=== PATIENT | male | born 1940 | race Caucasian/White ===

== ENCOUNTER 2017-03-28 11:34 | Emergency (ER) | payer OTHER ==
[~2017-03-28] VITALS: Ht 180.3 cm; Wt 116.3 kg
[~2017-03-28 11:34] MED LIST: ASPIR 8181 M1 PO; ATORVASTATIN CA40 MG PO; CARVEDILOL25 MG PO; LISINOPRIL-HCT1 EAC3 PO; METAMUCIL PACKE1 PKT PO; NOVOLOG MI100 UNIT/4 SC; PLAVIX75 MG PO
[2017-03-28 13:30] LABS: EOSINOPHIL (%) 0.8 % (0-5); EOSINOPHIL COUNT 0.1 K/uL (0-0.3); HEMATOCRIT 51.7 % (38.0-50.0); IMMATURE GRANULOCYTE (%) 0.4 % (0.0-0.7); INSTRUMENT ABS NEUTROPHIL CT 6.9 K/uL; LYMPHOCYTE COUNT 0.9 K/uL (1.0-2.8); MCH 29.7 PG (29.0-34.0); MCHC 35.2 G/DL (30.0-36.0); MCV 84.5 FL (86-99); MEAN PLAT.VOLUME 10.5 uM^3 (9.0-12.4); MONOCYTE (%) 7.2 % (3-12); MONOCYTE COUNT 0.6 K/uL (0-0.8); NEUTROPHIL (%) 81.2 % (45-76); NEUTROPHIL COUNT 6.9 K/uL (1.8-6.4); PLATELET COUNT 133 K/uL (156-360); RBC DIS.WIDTH-CV 12.5 % (11.8-14.6); RBC DIS.WIDTH-SD 38.2 % (39-53); RED BLOOD COUNT 6.12 M/uL (4.00-5.50); WHITE BLOOD COUNT 8.5 K/uL (4.1-10.2)
[2017-03-28 13:47] LABS: CHLORIDE 104 mEq/L (99-109); POTASSIUM 4.2 mEq/L (3.7-5.4); SODIUM 138 mEq/L (136-147)
[2017-03-28 13:49] LABS: GLUCOSE 154 mg/dL (70-99)
[2017-03-28 13:50] LABS: ANION GAP 11 MEQ/L (2-14)
[2017-03-28 13:53] LABS: GFR ESTIMATE (CALCULATED) > 59 mL/min/; UREA NITROGEN (BUN) 19 mg/dL (9-23)
[2017-03-28 15:44] LABS: APPEARANCE CLOUDY-YELLOW; RED CELL COUNT 2000 /MM^3 (0-1); WHITE CELL COUNT 6280 /MM^3 (0-200.0)
[2017-03-28 15:46] LABS: MONONUCLEAR WBC'S 4 %; POLYNUCLEAR WBC'S 96 % (0-25); SYNOVIAL FLUID EOSINOPHILS 0 % (0-25)
[2017-03-28 16:34] LABS: SPECIFIC GRAVITY 1.029
[2017-03-28 16:54] VITALS: BP 152/95
== END 2017-03-28 16:55 | disposition home or self-care (01) ==
LOC: EME 11:34
PROVIDERS: Emergency Medicine; Nurse Practitioner Family
PROC: 0S9C3ZZ Drainage of Right Knee Joint, Percutaneous Approach (ICD-10-PCS; principal; 2017-03-28)
DX: M25.461 Effusion, right knee (principal); M10.9 Gout, unspecified; E78.5 Hyperlipidemia, unspecified; I10 Essential (primary) hypertension; E11.9 Type 2 diabetes mellitus without complications; I25.2 Old myocardial infarction; Z79.82 Long term (current) use of aspirin; Z87.891 Personal history of nicotine dependence
CPT/HCPCS: 73564; 80048; 84315; 85025; 87040; 89051; 89060; 99281; 99284

== ENCOUNTER 2018-04-07 05:25 | Inpatient (IN) | payer OTHER ==
[~2018-04-07] VITALS: Ht 177.8 cm; Wt 114.2 kg
[2018-04-07 06:25] LABS: MCH 30.8 PG (29.0-34.0); MCV 85.6 FL (86-99); PLATELET COUNT 130 K/uL (156-360); RBC DIS.WIDTH-CV 12.7 % (11.8-14.6); RED BLOOD COUNT 5.84 M/uL (4.00-5.50); WHITE BLOOD COUNT 6.1 K/uL (4.1-10.2)
[2018-04-07 06:36] LABS: CHLORIDE 103 mEq/L (99-109); POTASSIUM 4.1 mEq/L (3.7-5.4); SODIUM 137 mEq/L (136-147)
[2018-04-07 06:38] LABS: GLUCOSE 231 mg/dL (70-99)
[2018-04-07 06:42] LABS: GFR ESTIMATE (CALCULATED) > 59 mL/min/ (58.99-99999); UREA NITROGEN (BUN) 23 mg/dL (9-23)
[2018-04-07 06:44] LABS: LIPASE 38 U/L (1.0-51.0)
[2018-04-07 06:46] LABS: TROP-I INTERPRETATION NEGATIVE; TROPONIN-I 0.05 ng/mL (0.0-0.30)
[2018-04-07] MEDS ORDERED: LISINOPRIL40 MG PO (07:18)
[2018-04-07] MEDS ORDERED: VITAMIN D32000 UNI1 PO (07:19)
[2018-04-07 08:21] LABS: INTER. NORMALIZED RATIO 1.1
[2018-04-07 08:24] LABS: PTT 28.8 SEC (25-37)
[2018-04-07 08:27] LABS: TROP-I INTERPRETATION NEGATIVE; TROPONIN-I 0.16 ng/mL (0.0-0.30)
[2018-04-07 12:51] VITALS: BP 140/96
[2018-04-07 13:13] VITALS: BP 144/66
[2018-04-07 16:16] LABS: TROPONIN-I 6.42 ng/mL (0.0-0.30)
[2018-04-07 16:17] LABS: TROP-I INTERPRETATION POSITIVE
[2018-04-07 17:00] VITALS: BP 120/68
[2018-04-07 20:30] VITALS: BP 170/100
[2018-04-07 20:54] LABS: TROP-I INTERPRETATION POSITIVE; TROPONIN-I 11.57 ng/mL (0.0-0.30)
[2018-04-08 00:01] VITALS: BP 127/79
[2018-04-08 03:02] LABS: INTER. NORMALIZED RATIO 1.1
[2018-04-08 03:04] LABS: PTT 74.2 SEC (25-37)
[2018-04-08 04:48] VITALS: BP 125/63
[2018-04-08 06:53] LABS: BASOPHIL (%) 0.5 % (0-1); EOSINOPHIL (%) 1.7 % (0-5); EOSINOPHIL COUNT 0.1 K/uL (0-0.3); HEMATOCRIT 47.3 % (38.0-50.0); HEMOGLOBIN 16.3 G/DL (12.5-16.6); IMMATURE GRANULOCYTE (%) 0.3 % (0.0-0.7); LYMPHOCYTE (%) 21.9 % (15-42); LYMPHOCYTE COUNT 1.4 K/uL (1.0-2.8); MCH 29.6 PG (29.0-34.0); MCHC 34.5 G/DL (30.0-36.0); MONOCYTE (%) 8.1 % (3-12); MONOCYTE COUNT 0.5 K/uL (0-0.8); NEUTROPHIL (%) 67.5 % (45-76); NEUTROPHIL COUNT 4.3 K/uL (1.8-6.4); PLATELET COUNT 113 K/uL (156-360); RBC DIS.WIDTH-CV 12.8 % (11.8-14.6); RBC DIS.WIDTH-SD 39.9 % (39-53); WHITE BLOOD COUNT 6.3 K/uL (4.1-10.2)
[2018-04-08 07:10] VITALS: BP 132/80
[2018-04-08 07:19] LABS: ALBUMIN 3.4 G/DL (3.2-4.8); ALKALINE PHOSPHATASE 35 IU/L (3-129); ALT (GPT) 28 IU/L (3-49); AST (GOT) 52 IU/L (2-34); CHLORIDE 106 MEQ/L (99-109); GFR ESTIMATE (CALCULATED) > 59 mL/min/ (58.99-99999); GLUCOSE 167 mg/dL (70-99); HDL CHOLESTEROL 24 MG/DL (Desirable>=40); LDL CHOLESTEROL 93 mg/dL (Desirable<100); NON-HDL CHOLESTEROL 161 mg/dL (Desirable<160); POTASSIUM 4.1 MEQ/L (3.7-5.4); SODIUM 138 MEQ/L (136-147); TOTAL BILIRUBIN 0.8 MG/DL (0.0-1.0); TOTAL CHOLESTEROL 185 mg/dL (Desirable<200); TOTAL PROTEIN 5.4 G/DL (6.4-8.3); TRIGLYCERIDES 342 MG/DL (Normal: <150); TROP-I INTERPRETATION POSITIVE; TROPONIN-I 10.61 ng/mL (0.0-0.30); UREA NITROGEN (BUN) 19 mg/dL (9-23)
[2018-04-08 11:01] VITALS: BP 134/78
[2018-04-08 15:19] VITALS: BP 123/78
[2018-04-08 19:58] VITALS: BP 151/90
[2018-04-09 00:20] VITALS: BP 126/75
[2018-04-09 04:08] VITALS: BP 136/81
[2018-04-09 05:22] LABS: HEMATOCRIT 44.4 % (38.0-50.0); HEMOGLOBIN 15.4 G/DL (12.5-16.6); MCHC 34.7 G/DL (30.0-36.0); MCV 86.5 FL (86-99); PLATELET COUNT 114 K/uL (156-360); RBC DIS.WIDTH-CV 12.7 % (11.8-14.6); RBC DIS.WIDTH-SD 40.2 % (39-53); RED BLOOD COUNT 5.13 M/uL (4.00-5.50); WHITE BLOOD COUNT 4.8 K/uL (4.1-10.2)
[2018-04-09 08:58] VITALS: BP 153/96
[2018-04-09] MEDS ORDERED: ASPIRIN EC325 MG PO (09:43)
[2018-04-09] MEDS ORDERED: LIPITOR20 MG PO (09:43)
[2018-04-09 10:01] LABS: HEMOGLOBIN A1c (GLYCOHEMOGLOB) 6.6 % (Below 5.7)
[2018-04-09] MEDS ORDERED: ASPIR-LOW81 MG PO (10:53)
== END 2018-04-09 12:49 | disposition home or self-care (01) | DRG 282 ==
LOC: EME 05:25 → EDOF 09:00 → 4EAST 09:00 → ENRESERV 09:06 → 4EAST 11:35
PROVIDERS: Hospitalist; Nurse Practitioner Family
DX: I21.4 Non-ST elevation (NSTEMI) myocardial infarction (principal); I25.110 Atherosclerotic heart disease of native coronary artery with unstable angina pectoris; I25.5 Ischemic cardiomyopathy; I10 Essential (primary) hypertension; E78.5 Hyperlipidemia, unspecified; E11.9 Type 2 diabetes mellitus without complications; I95.9 Hypotension, unspecified; K30 Functional dyspepsia; I24.9 Acute ischemic heart disease, unspecified; I34.0 Nonrheumatic mitral (valve) insufficiency; I35.0 Nonrheumatic aortic (valve) stenosis; I25.2 Old myocardial infarction; Z79.01 Long term (current) use of anticoagulants; Z95.5 Presence of coronary angioplasty implant and graft; Z87.891 Personal history of nicotine dependence; Z91.14 Patient's other noncompliance with medication regimen; Z79.02 Long term (current) use of antithrombotics/antiplatelets; Z91.19 Patient's noncompliance with other medical treatment and regimen; Z79.82 Long term (current) use of aspirin
CPT/HCPCS: 71046; 80048; 80053; 80061; 82948; 83036; 83690; 84484; 85025; 85027; 85610; 85730; 93005; 93306; 99281; 99285; J1644; J1815